=== PATIENT | female | born 1955 | race Two or more races ===

== ENCOUNTER 2018-01-15 14:19 | Outpatient (CLI) | payer OTHER | END 2018-01-15 14:31 | disposition home or self-care (01) | LOC: MRI 14:19 | DX: M25.511 Pain in right shoulder (principal) | CPT/HCPCS: 73221 ==

== ENCOUNTER 2019-01-27 14:08 | Outpatient (CLI) | payer OTHER | END 2019-01-27 14:10 | disposition home or self-care (01) | LOC: RAD 14:08 | DX: R91.8 Other nonspecific abnormal finding of lung field (principal) ==

== ENCOUNTER 2020-03-16 14:13 | Outpatient (CLI) | payer OTHER | END 2020-03-16 14:25 | disposition home or self-care (01) | LOC: RAD 14:13 → MRI 14:15 → RAD 14:25 | PROVIDERS: ATTEND Neuromusculoskeletal Medicine, Sports Medicine | DX: M25.562 Pain in left knee (principal); M17.0 Bilateral primary osteoarthritis of knee | CPT/HCPCS: 73721 ==

== ENCOUNTER 2020-05-24 10:52 | Outpatient (CLI) | payer OTHER | END 2020-05-24 10:57 | disposition home or self-care (01) | LOC: MAMO-SONO 10:52 | DX: Z12.31 Encounter for screening mammogram for malignant neoplasm of breast (principal); N60.19 Diffuse cystic mastopathy of unspecified breast ==

== ENCOUNTER 2020-12-07 13:57 | Outpatient (CLI) | payer OTHER | END 2020-12-07 14:13 | disposition home or self-care (01) | LOC: SONOGRAMA 13:57 → MAMO-SONO 14:00 → SONOGRAMA 14:13 | PROVIDERS: ATTEND Specialist | DX: N28.1 Cyst of kidney, acquired (principal) ==

== ENCOUNTER 2022-01-25 09:26 | Outpatient (CLI) | payer OTHER | END 2022-01-25 09:32 | disposition home or self-care (01) | LOC: RAD 09:26 | PROVIDERS: ATTEND Neuromusculoskeletal Medicine, Sports Medicine | DX: M54.50 Low back pain, unspecified (principal) ==

== ENCOUNTER 2024-05-09 15:33 | Emergency (ER) | payer OTHER ==
[~2024-05-09] VITALS: Ht 170.2 cm; Wt 72.6 kg
[2024-05-09] MEDS ORDERED: WELLBUTRIN SR150 MG (15:40)
[2024-05-09] MEDS ORDERED: TOPROL XL25 M1 (15:40)
[2024-05-09] MEDS ORDERED: XANAX0.25 MG (15:40)
[2024-05-09] MEDS ORDERED: ZESTORETIC 20-1 EAC1 (15:40)
[2024-05-09] MEDS ORDERED: FARXIGA10 MG (15:41)
== END 2024-05-09 18:32 | disposition home or self-care (01) ==
LOC: ER 15:34
DX: S05.41XA Penetrating wound of orbit with or without foreign body, right eye, initial encounter (principal); W18.39XA Other fall on same level, initial encounter; Y93.89 Activity, other specified; Y92.481 Parking lot as the place of occurrence of the external cause; Z88.0 Allergy status to penicillin

== ENCOUNTER 2024-05-12 12:05 | Outpatient (CLI) | payer OTHER ==
[~2024-05-12 12:05] MED LIST: FARXIGA10 MG; TOPROL XL25 M1; WELLBUTRIN SR150 MG; XANAX0.25 MG; ZESTORETIC 20-1 EAC1
== END 2024-05-12 12:15 | disposition home or self-care (01) ==
LOC: SONOGRAMA 12:05
DX: N18.31 Chronic kidney disease, stage 3a (principal); Z87.442 Personal history of urinary calculi; I12.9 Hypertensive chronic kidney disease with stage 1 through stage 4 chronic kidney disease, or unspecified chronic kidney disease; E11.22 Type 2 diabetes mellitus with diabetic chronic kidney disease; E22.0 Acromegaly and pituitary gigantism; E87.5 Hyperkalemia